=== PATIENT | male | born 1955 | race Caucasian/White ===

== ENCOUNTER 2017-11-28 13:20 | Observation (INO) ==
--- NOTE | 2017-11-28 13:28 | Emergency Department Note ---
Disposition Clinical Impression: Acute renal insufficiency Abdominal pain Qualifiers: Abdominal location: generalized Qualified Code(s): R10.84 - Generalized abdominal pain Disposition: Home, Self-Care Condition: Fair Referrals: Lesly Ying CNP [Primary Care Provider] - Forms: ED Satisfaction Letter, Work/School Release Time of Disposition: 15:47 (Dr Villarreal) Abdominal Pain HPI - General Chief Complaint: ED Abdominal Pain Stated Complaint: Abdominal pain, nausea, vomiting Time Seen by Provider: 11/28/17 13:27 Source: patient Mode of arrival: ambulatory Limitations: no limitations Nursing Notes Reviewed: Yes Vital Signs Reviewed: Yes - History of Present Illness Pt Subjective Complaint: abdominal pain Onset (ago): day(s) (3) Consistency: intermittent, Worsening Location: periumbilical, epigastric Pain Severity: moderate Pain Scale: 9 Radiation: none Migration to: no migration Improves with: nothing Worsens with: eating, movement, other (palpation) Context: other (Acute onset abdominal pain with early satiety. The patient noted cramping around the periumbilical and epigastric area. He does have a palpable bulge on the anterior abdomen. The patient denies any fever, chills, chest pain, shortness of breath, or any changes in his bladder habits. He does state one bowel movement in the last 3 days.) Treatments prior to arrival: none - Related Data Home Medications Medication Instructions Recorded Confirmed Lovastatin 40 mg PO DAILY 11/18/15 11/28/17 Metoprolol [Lopressor] 50 mg PO DAILY 11/18/15 11/28/17 Lisinopril-HCTZ 20-12.5 [Prinzide 1 each PO DAILY 11/07/17 11/28/17 20-12.5] Oxycodone HCl/Acetaminophen 1 each PO TID 11/28/17 11/28/17 [Percocet 7.5-325 mg Tablet] Allergies Allergy/AdvReac Type Severity Reaction Status Date / Time acetaminophen [From Vicodin] Allergy Itching Verified 11/28/17 13:21 hydrocodone [From Vicodin] Allergy Itching Verified 11/28/17 13:21 All systems ED: reviewed and negative except as stated. Review of Systems: As Per HPI Abdominal Pain PMH - Past Medical History Medical history: Reports: arthritis, asthma, COPD, GI bleed, hyperlipidemia, hypertension, migraine, other Male Surgical History: Reports: other Psychiatric history: Reports: no psych history - Social History Smoking status: Current every day smoker Alcohol use: Reports: none Drug use: Reports: none Physical Exam - General Limitations: no limitations General appearance: alert, in no apparent distress - Head Head exam: atraumatic, normocephalic, normal inspection - Eye Eye exam: Present: normal appearance, PERRL, EOMI - ENT ENT exam: normal exam, normal oropharynx, mucous membranes moist - Neck Neck exam: Present: normal inspection - Chest Chest inspection: Present: normal inspection, symmetric chest wall rise - Respiratory Respiratory exam: Present: normal lung sounds bilaterally - Cardiovascular Cardiovascular exam: Present: regular rate, normal rhythm, normal heart sounds - Abdominal Exam Abdominal exam: Present: soft, tenderness, normal bowel sounds, hernia (Ventral hernia between the epigastrium and umbilical area.). Absent: distention, guarding, rebound, rigidity, Vazquez's sign, tenderness at McBurney's Point Abdominal tenderness: Present: mild - Extremities Exam Extremities exam: Present: normal inspection, full ROM. Absent: tenderness, pedal edema - Back Exam Back exam: Present: normal inspection, full ROM. Absent: tenderness - Neurological Exam Neurological exam: Present: alert, oriented X3, CN II-XII intact, normal gait - Psychiatric Psychiatric exam: Present: normal affect, normal mood - Skin Skin exam: Present: warm, dry, intact, normal color Course Vital Signs Temperature 97.1 F L 11/28/17 13:23 Pulse Rate 88 11/28/17 13:23 Respiratory Rate 20 11/28/17 13:23 Blood Pressure 150/92 11/28/17 13:23 O2 Sat by Pulse Oximetry 94 11/28/17 13:23 Temperature 97.1 F L 11/28/17 13:23 Pulse Rate 80 11/28/17 15:29 Respiratory Rate 18 11/28/17 15:29 Blood Pressure 142/78 11/28/17 15:29 O2 Sat by Pulse Oximetry 95 11/28/17 15:29 Oxygen Delivery Oxygen Delivery Room Air Abdominal Pain - MDM Narrative Medical decision making narrative: Patient discomfort improve after Reglan treatment. He will be admitted secondary to dehydration as well as abdominal pain. He does show leukocytosis but no clinical signs for acute abdomen. Discussed case with hospitalist and agree with empiric Zosyn therapy. - Differential Diagnosis Differential Diagnosis: Likely: abdominal pain non-specific, diverticulitis, diverticulosis, gastroenteritis, small bowel obstruction - Medical Records Medical records reviewed: Yes I reviewed the patient's medical records. - Lab Data Lab results reviewed: Yes I reviewed the patient's lab results. Result diagrams: 11/28/17 14:12 11/28/17 14:12 Lab Results 11/28/17 11/28/17 Range/Units 14:12 14:12 WBC 18.9 H (4.3-11.1) K/mcL RBC 4.68 (4.19-5.50) M/mcL Hgb 13.9 (12.9-16.9) g/dL Hct 44.0 (37.5-50.1) % MCV 94.0 (83.0-100.0) fL MCH 29.7 (28.0-33.3) pg MCHC 31.6 (31.6-35.5) g/dL RDW 14.6 H (11.5-14.5) % Plt Count 195 (140-400) K/mcL MPV 12.6 H (9.4-12.4) fL Immature Gran % 0.5 (0-4) % Seg Neutrophils % 77.7 % Lymphocytes % 12.8 % Monocytes % 8.1 % Eosinophils % 0.5 % Basophils % 0.4 % Neutrophils # 14.7 H (1.6-8.9) K/mcL Lymphocytes # 2.4 (0.6-4.6) K/mcL Monocytes # 1.5 H (0.0-1.3) K/mcL Eosinophils # 0.1 (0.0-0.6) K/mcL Basophils # 0.1 (0.0-0.2) K/mcL Sodium 131 L (136-145) mEq/L Potassium 4.5 (3.5-5.1) mEq/L Chloride 100 (98-107) mEq/L Carbon Dioxide 21 L (23-29) mEq/L BUN 49 H (8-23) mg/dL Creatinine 1.56 H (0.70-1.30) mg/dL Est GFR ( Amer) 55 L (> 60) Est GFR (Non-Af Amer) 45 L (> 60) BUN/Creatinine Ratio 31 H (6-26) Glucose 127 H (70-105) mg/dL Calculated Osmolality 287 (280-300) Calcium 9.1 (8.6-10.3) mg/dL Total Bilirubin 0.4 (0.3-1.0) mg/dL Direct Bilirubin 0.1 (0.0-0.2) mg/dL Indirect Bilirubin 0.3 (0.0-1.2) mg/dL AST 9 L (13-39) Units/L ALT 9 (7-52) Units/L Alkaline Phosphatase 139 H (34-104) Units/L Serum Total Protein 7.5 (6.4-8.9) g/dL Albumin 4.2 (3.5-5.7) g/dL Globulin 3.3 (2.4-3.5) g/dL Albumin/Globulin Ratio 1.3 (1.1-2.2) Lipase 7 L (11-82) Units/L - Radiology Data Radiology results reviewed: Yes I reviewed the patient's radiology results. Abdomen/Pelvis CT 11/28/17 15:01 IMPRESSION: 1. No ventral abdominal hernia appreciated. 2. Atherosclerosis and ectasia of the infrarenal abdominal aorta measuring up to 27 mm. 3. Small fat containing left inguinal hernia. 4. No abnormality of the gastrointestinal tract appreciated. D/ / Mayur Macias / Mayur Macias Interpreting Provider: Mayur Macias
[2017-11-28] MEDS ORDERED: Metoclopramide 10 MG/2 ML VIAL IM STA (13:29)
[2017-11-28] MEDS ORDERED: 0.9 % Sodium Chloride 1,000 ML IVC ONE (13:54)
[2017-11-28] MEDS ORDERED: Isovue-370 500 ML INFUS..BTL IV ONE ×2 (13:55→16:15)
[2017-11-28 14:25] LABS: Basophils # 0.1 K/mcL (0.0-0.2); Basophils % 0.4 %; Eosinophils # 0.1 K/mcL (0.0-0.6); Eosinophils % 0.5 %; Hemoglobin 13.9 g/dL (12.9-16.9); Immature Granulocytes % 0.5 % (0-4); Lymphocytes # 2.4 K/mcL (0.6-4.6); Lymphocytes % 12.8 %; Mean Corpuscular HGB Conc 31.6 g/dL (31.6-35.5); Mean Corpuscular Hemoglobin 29.7 pg (28.0-33.3); Mean Platelet Volume 12.6 fL (9.4-12.4); Monocytes # 1.5 K/mcL (0.0-1.3); Monocytes % 8.1 %; Neutrophils # 14.7 K/mcL (1.6-8.9); Platelet Count 195 K/mcL (140-400); Red Blood Count 4.68 M/mcL (4.19-5.50); Red Cell Distribution Width 14.6 % (11.5-14.5); Segmented Neutrophils % 77.7 %
[2017-11-28 14:45] LABS: Albumin 4.2 g/dL (3.5-5.7); Albumin/Globulin Ratio 1.3 (1.1-2.2); Bilirubin,Direct 0.1 mg/dL (0.0-0.2); Bilirubin,Indirect 0.3 mg/dL (0.0-1.2); Bilirubin,Total 0.4 mg/dL (0.3-1.0); Calcium 9.1 mg/dL (8.6-10.3); Globulin 3.3 g/dL (2.4-3.5); Potassium 4.5 mEq/L (3.5-5.1); Total Protein 7.5 g/dL (6.4-8.9)
[2017-11-28] MEDS ORDERED: Piperacillin/Tazobactam 3.375 GM in 0.9 % Sodium Chloride Mini Bag 100 ML IVPB ONE (15:41)
[2017-11-28] MEDS ORDERED: 0.9 % Sodium Chloride 1,000 ML IVC SCH (16:15)
[2017-11-28] MEDS ORDERED: Naloxone 0.4 MG/ML INJ IVP PRN (16:15)
[2017-11-28] MEDS: Nicotine 21 MG PATCH.TD24 TD SCH (17:21)
[2017-11-28] MEDS: *HR* OxyCODONE Oral Soln 5 MG/5 ML UD.LIQ PO PRN (19:44)
[2017-11-28] MEDS: Metoclopramide 10 MG/2 ML VIAL IVP PRN (20:16)
[2017-11-29] MEDS: *HR* OxyCODONE Oral Soln 5 MG/5 ML UD.LIQ PO PRN ×5 (03:06→22:43)
[2017-11-29] MEDS: Metoclopramide 10 MG/2 ML VIAL IVP PRN (04:21)
[2017-11-29 06:33] LABS: Hematocrit 40.2 % (37.5-50.1); Hemoglobin 13.8 g/dL (12.9-16.9); Mean Corpuscular HGB Conc 34.3 g/dL (31.6-35.5); Mean Corpuscular Hemoglobin 29.9 pg (28.0-33.3); Mean Platelet Volume 12.8 fL (9.4-12.4); Platelet Count 178 K/mcL (140-400); Red Blood Count 4.62 M/mcL (4.19-5.50)
[2017-11-29 07:00] LABS: Alanine Aminotransferase 8 Units/L (7-52); Albumin/Globulin Ratio 1.3 (1.1-2.2); Alkaline Phosphatase 122 Units/L (34-104); Aspartate Amino Transferase 11 Units/L (13-39); BUN/Creatinine Ratio 37 (6-26); Bilirubin,Total 0.3 mg/dL (0.3-1.0); Blood Urea Nitrogen 45 mg/dL (8-23); Calcium 9.1 mg/dL (8.6-10.3); Carbon Dioxide 20 mEq/L (23-29); Chloride 102 mEq/L (98-107); Globulin 3.1 g/dL (2.4-3.5); Glucose 171 mg/dL (70-105); Osmolality,Calculated 292 (280-300); Potassium 4.1 mEq/L (3.5-5.1); Sodium 133 mEq/L (136-145); Total Protein 7.1 g/dL (6.4-8.9); eGFR For African Americans > 60 (> 60); eGFR For Non-African Americans > 60 (> 60)
[2017-11-29] MEDS: Nicotine 21 MG PATCH.TD24 TD SCH (08:04)
[2017-11-29] MEDS: Ondansetron ODT 4 MG TAB.RAPDIS SL PRN ×2 (08:37→21:53)
[2017-11-29] MEDS ORDERED: Lisinopril 20 MG TABLET PO SCH (09:00)
[2017-11-29] MEDS ORDERED: Metoclopramide 10 MG/2 ML VIAL IVP SCH (09:00)
[2017-11-29] MEDS ORDERED: hydroCHLOROthiazide 25 MG TABLET PO SCH (09:00)
[2017-11-29] MEDS: *HR* Promethazine 25 MG/ML VIAL IVP PRN ×4 (10:45→22:43)
--- NOTE | 2017-11-29 11:47 | Internal Med History&Physical ---
Date of Encounter: 11/29/17 Time of Encounter: 11:15 Assessment and Plan (1) Abdominal pain Current visit: Yes Status: Acute Suspect acute gastroenteritis. Will continue supportive care and reassess in a.m. Qualifiers: Abdominal location: generalized Qualified Code(s): R10.84 - Generalized abdominal pain (2) Acute renal insufficiency Current visit: Yes Status: Acute Suspect secondary to vomiting with dehydration and use of Prinzide. We will discontinue lisinopril/HCTZ and continue IV fluids. (3) COPD (chronic obstructive pulmonary disease) Current visit: No Status: Chronic Continue NicoDerm patch. Qualifiers: COPD type: unspecified COPD Qualified Code(s): J44.9 - Chronic obstructive pulmonary disease, unspecified Internal Medicine - H&P: HPI Chief complaint: Vomiting and abdominal discomfort Admitted From: Emergency Dept Plans for Post Hospital Care: Home History of present illness: Mr. Chau is a 62 year old male who came to emergency room stating he had onset of abdominal discomfort the morning of November 25 upon awakening. The pain persisted unchanged over the next 3 days. He developed vomiting the morning of November 28 and reports approximately 12 episodes of vomiting without visible blood. He denies diarrhea but has had chills. The abdominal pain has remained unchanged. He denies previous similar pains. He was evaluated in emergency room and admitted to [facility] floor for ongoing care needs. He reports some acquaintances have similar symptoms. His GI history is negative for known disorders of liver gallbladder or exocrine pancreas. Past Med Surg Social Fam HX - Past Medical History Medical history: arthritis, asthma, COPD, GI bleed, hyperlipidemia, hypertension , migraine, other Psychiatric history: no psych history - Past Surgical History Surgical History: other - Social History Smoking Status: Current every day smoker Smokeless Tobacco Status: No Alcohol use: none Drug use: none Internal Medicine - H&P: Meds Lovastatin 40 mg PO DAILY 11/18/15 [History] Metoprolol [Lopressor] 50 mg PO DAILY 11/18/15 [History] Lisinopril-HCTZ 20-12.5 [Prinzide 20-12.5] 1 each PO DAILY 11/07/17 [History] Oxycodone HCl/Acetaminophen [Percocet 7.5-325 mg Tablet] 1 each PO TID 11/28/17 [History] 3 Allergy/AdvReac Type Severity Reaction Status Date / Time acetaminophen [From Vicodin] Allergy Itching Verified 11/28/17 13:21 hydrocodone [From Vicodin] Allergy Itching Verified 11/28/17 13:21 All Systems PM: A 10-system review of systems was performed and is negative for pertinent findings except as documented above in the HPI. Review of systems: Review of systems from his May [facility] hospitalization were reviewed and revised as below. Gen.: His weight has increased from 77.111 kg on 05/16/2016 to 83.915 kg on admission now Cardiovascular: He has history of hypertension but no known [place] heart failure angina DVT or pulmonary embolus. He has known ASHD with stents placed 2009. He has not had further heart cath since then. He has known ASPVD with right leg stent placed approximately 2012. Respiratory: He has smoked since age 15 up to 1-1/2 packs per day. He does not use home oxygen. He had PFTs at [facility] approximately 2010 which showed COPD/ emphysema. He has not been tested for sleep apnea. GI: As per history of present illness : He has had remote kidney stones. He denies other kidney or bladder disorders except for acute kidney injury that resolved at the February 2015 hospitalization. Neurologic: He denies large distribution strokes or seizures Endocrine: He has hyperlipidemia but no known diabetes or thyroid disease Hematology/oncology: Denies blood disorders cancers or anemia Psychiatric: He has anxiety but no significant depression or other mental health issues [place] skeletal: He has DJD but no known gout or osteoporosis - Constitutional Vitals: Temp Pulse Resp BP Pulse Ox 98.2 F 73 18 142/72 97 11/29/17 10:07 11/29/17 10:07 11/29/17 10:07 11/29/17 10:07 11/29/17 10:07 Exam: Gen.: He is a well-developed well-nourished male sitting on the side of bed who appears in mild discomfort HEENT: Head is atraumatic and normocephalic. Eyes: EOMI. There is no scleral icterus. Mouth: He is edentulous. Mucosa is moist. Neck: Supple and nontender. There is no thyromegaly or adenopathy noted. Heart: Regular without murmurs gallops or ectopics Lungs: No wheezes or crackles are heard. Abdomen: Abdomen appears minimally distended. It is slightly tympanic to percussion. Bowel sounds are diminished. There is mild diffuse tenderness without guarding on palpation. Extremities: There is no cyanosis edema or clubbing noted. Dorsalis pedis and posttibial pulses are trace palpable bilaterally. His feet are warm to touch. He has DJD changes of his hands. Neurologic: Mental status: He is talkative and a good historian. Cranial nerves : Smile is symmetric. Forehead wrinkles bilaterally. Tongue protrudes midline. EOMI. Motor: There is no pronator drift. Cerebellar: Finger to nose is intact bilaterally. Skin: Warm and dry Internal Med - H&P Results - Labs CBC & Chem 7: 11/29/17 05:50 11/29/17 05:50 Labs: Short CBC 11/29/17 Range/Units 05:50 WBC 24.1 H (4.3-11.1) K/mcL Hgb 13.8 (12.9-16.9) g/dL Hct 40.2 (37.5-50.1) % Plt Count 178 (140-400) K/mcL BMP 11/29/17 05:50 Sodium 133 L Potassium 4.1 Chloride 102 Carbon Dioxide 20 L BUN 45 H Creatinine 1.22 Glucose 171 H Calcium 9.1 Liver Function 11/29/17 Range/Units 05:50 Total Bilirubin 0.3 (0.3-1.0) mg/dL AST 11 L (13-39) Units/L ALT 8 (7-52) Units/L Alkaline Phosphatase 122 H (34-104) Units/L Albumin 4.0 (3.5-5.7) g/dL
[2017-11-29] MEDS: ALPRAZolam 0.5 MG TABLET PO PRN ×2 (17:17→22:42)
[2017-11-30] MEDS: *HR* Promethazine 25 MG/ML VIAL IVP PRN ×2 (03:16→20:54)
[2017-11-30] MEDS: *HR* OxyCODONE Oral Soln 5 MG/5 ML UD.LIQ PO PRN ×5 (03:16→20:53)
[2017-11-30] MEDS: Ondansetron ODT 4 MG TAB.RAPDIS SL PRN ×3 (06:10→17:32)
[2017-11-30] MEDS: ALPRAZolam 0.5 MG TABLET PO PRN ×3 (06:10→20:54)
[2017-11-30 06:14] LABS: Basophils # 0.1 K/mcL (0.0-0.2); Basophils % 0.2 %; Hematocrit 38.9 % (37.5-50.1); Hemoglobin 13.2 g/dL (12.9-16.9); Immature Granulocytes % 0.6 % (0-4); Lymphocytes % 7.1 %; Mean Corpuscular HGB Conc 33.9 g/dL (31.6-35.5); Mean Corpuscular Hemoglobin 29.4 pg (28.0-33.3); Mean Corpuscular Volume 86.6 fL (83.0-100.0); Mean Platelet Volume 13.1 fL (9.4-12.4); Monocytes % 8.6 %; Neutrophils # 22.9 K/mcL (1.6-8.9); Platelet Count 170 K/mcL (140-400); Red Blood Count 4.49 M/mcL (4.19-5.50); Red Cell Distribution Width 13.8 % (11.5-14.5); Segmented Neutrophils % 83.5 %
[2017-11-30 06:18] LABS: Monocytes # 2.4 K/mcL (0.0-1.3)
[2017-11-30 06:29] LABS: Alanine Aminotransferase 7 Units/L (7-52); Albumin 3.6 g/dL (3.5-5.7); Albumin/Globulin Ratio 1.1 (1.1-2.2); Alkaline Phosphatase 104 Units/L (34-104); Aspartate Amino Transferase 9 Units/L (13-39); BUN/Creatinine Ratio 35 (6-26); Bilirubin,Total 0.3 mg/dL (0.3-1.0); Blood Urea Nitrogen 45 mg/dL (8-23); Carbon Dioxide 24 mEq/L (23-29); Chloride 99 mEq/L (98-107); Globulin 3.2 g/dL (2.4-3.5); Glucose 159 mg/dL (70-105); Magnesium 2.1 mg/dL (1.6-2.6); Osmolality,Calculated 291 (280-300); Sodium 133 mEq/L (136-145); Total Protein 6.8 g/dL (6.4-8.9); eGFR For African Americans > 60 (> 60); eGFR For Non-African Americans 56 (> 60)
[2017-11-30 06:55] LABS: Platelet Estimate Normal (Normal)
[2017-11-30] MEDS: Nicotine 21 MG PATCH.TD24 TD SCH (08:24)
--- NOTE | 2017-11-30 12:49 | Internal Med Progress Note ---
Date of Encounter: 11/30/17 Time of Encounter: 12:40 - Assessment and plan (1) Abdominal pain Current Visit: Yes Status: Acute Assessment and plan: November 30. Continue supportive care and reassess in a.m. Qualifiers: Abdominal location: generalized Qualified Code(s): R10.84 - Generalized abdominal pain (2) Acute renal insufficiency Current Visit: Yes Status: Acute Assessment and plan: November 30. Remain off lisinopril/HCTZ and monitor renal indices. (3) COPD (chronic obstructive pulmonary disease) Current Visit: No Status: Chronic Assessment and plan: November 30. Continue NicoDerm patch Qualifiers: COPD type: unspecified COPD Qualified Code(s): J44.9 - Chronic obstructive pulmonary disease, unspecified - Subjective Interval history: November 30. He has no new complaints. He reports he has not vomited in over 12 hours. His abdominal pain is not significantly changed. He denies diarrhea. - Constitutional Vitals: Temp Pulse Resp BP Pulse Ox 98.4 F 90 20 122/76 95 11/30/17 10:30 11/30/17 10:30 11/30/17 10:30 11/30/17 10:30 11/30/17 10:30 Exam: He is lying in bed and appears in less pain than yesterday. Abdomen shows very few bowel sounds. The distention appears slightly decreased. He reports tenderness to light palpation. Extremities show no edema. I reviewed his medications. I discussed pertinent lab results with him. Internal Medicine: Result - Labs CBC & Chem 7: 11/30/17 05:40 11/30/17 05:40 Labs: Short CBC 11/30/17 Range/Units 05:40 WBC 27.4 H (4.3-11.1) K/mcL Hgb 13.2 (12.9-16.9) g/dL Hct 38.9 (37.5-50.1) % Plt Count 170 (140-400) K/mcL Neutrophils # 22.9 H (1.6-8.9) K/mcL BMP 11/30/17 05:40 Sodium 133 L Potassium 4.0 Chloride 99 Carbon Dioxide 24 BUN 45 H Creatinine 1.29 Glucose 159 H Calcium 9.0 Liver Function 11/30/17 Range/Units 05:40 Total Bilirubin 0.3 (0.3-1.0) mg/dL AST 9 L (13-39) Units/L ALT 7 (7-52) Units/L Alkaline Phosphatase 104 (34-104) Units/L Albumin 3.6 (3.5-5.7) g/dL Consult Discharge Plan - Plan Referrals: Lesly Ying, ROBERTA [Primary Care Provider] - 1 week
[2017-12-01] MEDS: *HR* Promethazine 25 MG/ML VIAL IVP PRN ×2 (06:37→13:09)
[2017-12-01] MEDS: ALPRAZolam 0.5 MG TABLET PO PRN ×3 (06:37→21:46)
[2017-12-01] MEDS: *HR* OxyCODONE Oral Soln 5 MG/5 ML UD.LIQ PO PRN ×3 (06:37→21:47)
[2017-12-01 06:52] LABS: Basophils % 0.2 %; Eosinophils % 0.1 %; Hematocrit 35.7 % (37.5-50.1); Immature Granulocytes % 0.7 % (0-4); Lymphocytes % 8.8 %; Mean Corpuscular HGB Conc 33.6 g/dL (31.6-35.5); Mean Corpuscular Hemoglobin 29.4 pg (28.0-33.3); Mean Corpuscular Volume 87.5 fL (83.0-100.0); Mean Platelet Volume 13.5 fL (9.4-12.4); Monocytes % 8.8 %; Platelet Count 154 K/mcL (140-400); Red Blood Count 4.08 M/mcL (4.19-5.50); Red Cell Distribution Width 13.7 % (11.5-14.5); Segmented Neutrophils % 81.4 %
[2017-12-01 07:01] LABS: Neutrophils # 18.2 K/mcL (1.6-8.9)
[2017-12-01 07:09] LABS: BUN/Creatinine Ratio 32 (6-26); Blood Urea Nitrogen 38 mg/dL (8-23); Calcium 8.6 mg/dL (8.6-10.3); Carbon Dioxide 22 mEq/L (23-29); Chloride 100 mEq/L (98-107); Glucose 104 mg/dL (70-105); Osmolality,Calculated 277 (280-300); Potassium 4.2 mEq/L (3.5-5.1); Sodium 129 mEq/L (136-145); eGFR For African Americans > 60 (> 60); eGFR For Non-African Americans > 60 (> 60)
[2017-12-01] MEDS: Nicotine 21 MG PATCH.TD24 TD SCH (09:27)
--- NOTE | 2017-12-01 09:56 | Internal Med Progress Note ---
Date of Encounter: 12/01/17 Time of Encounter: 09:49 - Assessment and plan (1) Abdominal pain Current Visit: Yes Status: Acute Assessment and plan: November 30. Continue supportive care and reassess in a.m. December 01. Improved. Continue present treatment. Anticipate discharge home in 1-2 days Qualifiers: Abdominal location: generalized Qualified Code(s): R10.84 - Generalized abdominal pain (2) Acute renal insufficiency Current Visit: Yes Status: Acute Assessment and plan: November 30. Remain off lisinopril/HCTZ and monitor renal indices. (3) COPD (chronic obstructive pulmonary disease) Current Visit: No Status: Chronic Assessment and plan: November 30. Continue NicoDerm patch Qualifiers: COPD type: unspecified COPD Qualified Code(s): J44.9 - Chronic obstructive pulmonary disease, unspecified - Subjective Interval history: November 30. He has no new complaints. He reports he has not vomited in over 12 hours. His abdominal pain is not significantly changed. He denies diarrhea. December 01. He has no new complaints and states he feels better. He tolerated pancakes for breakfast and has no nausea. He still has some abdominal pain. - Constitutional Vitals: Temp Pulse Resp BP Pulse Ox 98.0 F 97 16 135/88 94 12/01/17 06:27 12/01/17 06:27 12/01/17 06:27 12/01/17 06:27 12/01/17 06:27 Exam: He is sitting on the side of bed and appears more comfortable today. His affect is cheerful. I reviewed his medications. I discussed pertinent lab results with him. Internal Medicine: Result - Labs CBC & Chem 7: 12/01/17 05:34 12/01/17 05:34 Labs: Short CBC 12/01/17 Range/Units 05:34 WBC 22.3 H (4.3-11.1) K/mcL Hgb 12.0 L (12.9-16.9) g/dL Hct 35.7 L (37.5-50.1) % Plt Count 154 (140-400) K/mcL Neutrophils # 18.2 H (1.6-8.9) K/mcL BMP 12/01/17 05:34 Sodium 129 L Potassium 4.2 Chloride 100 Carbon Dioxide 22 L BUN 38 H Creatinine 1.20 Glucose 104 Calcium 8.6 Consult Discharge Plan - Plan Referrals: Lesly Ying CNP [Primary Care Provider] - 1 week
[2017-12-01] MEDS ORDERED: *HR* Promethazine 25 MG/ML VIAL IVP PRN (14:38)
[2017-12-01] MEDS: Ondansetron ODT 4 MG TAB.RAPDIS SL PRN (14:46)
[2017-12-02] MEDS ORDERED: GI Cocktail 40 ML EACH PO ONE (02:15)
[2017-12-02] MEDS: Ondansetron ODT 4 MG TAB.RAPDIS SL PRN ×3 (04:40→17:08)
[2017-12-02] MEDS: *HR* OxyCODONE Oral Soln 5 MG/5 ML UD.LIQ PO PRN ×2 (04:45→20:46)
[2017-12-02 06:35] LABS: Basophils % 0.2 %; Eosinophils % 0.1 %; Hematocrit 37.6 % (37.5-50.1); Hemoglobin 12.7 g/dL (12.9-16.9); Immature Granulocytes % 0.5 % (0-4); Lymphocytes # 1.6 K/mcL (0.6-4.6); Lymphocytes % 9.5 %; Mean Corpuscular HGB Conc 33.8 g/dL (31.6-35.5); Mean Corpuscular Hemoglobin 29.5 pg (28.0-33.3); Mean Corpuscular Volume 87.2 fL (83.0-100.0); Mean Platelet Volume 13.1 fL (9.4-12.4); Monocytes # 1.4 K/mcL (0.0-1.3); Monocytes % 8.3 %; Neutrophils # 13.7 K/mcL (1.6-8.9); Platelet Count 174 K/mcL (140-400); Red Blood Count 4.31 M/mcL (4.19-5.50); Red Cell Distribution Width 13.6 % (11.5-14.5); Segmented Neutrophils % 81.4 %
[2017-12-02 07:11] LABS: BUN/Creatinine Ratio 31 (6-26); Blood Urea Nitrogen 35 mg/dL (8-23); Calcium 9.1 mg/dL (8.6-10.3); Carbon Dioxide 29 mEq/L (23-29); Chloride 93 mEq/L (98-107); Glucose 136 mg/dL (70-105); Osmolality,Calculated 282 (280-300); Phosphorous 3.8 mg/dL (2.7-4.5); Potassium 4.2 mEq/L (3.5-5.1); Sodium 131 mEq/L (136-145); eGFR For African Americans > 60 (> 60); eGFR For Non-African Americans > 60 (> 60)
[2017-12-02 09:05] LABS: % Iron Saturation 9 % (20-55); Ferritin 635 ng/ml (20-250); Iron 25 mcg/dL (65-175); Transferrin 189 mg/dL (203-362)
[2017-12-02 09:10] LABS: Folate 14.4 ng/mL (3.0-16.0)
--- NOTE | 2017-12-02 10:06 | Internal Med Progress Note ---
Date of Encounter: 12/02/17 Time of Encounter: 09:55 - Assessment and plan (1) Abdominal pain Current Visit: Yes Status: Acute Assessment and plan: November 30. Continue supportive care and reassess in a.m. December 01. Improved. Continue present treatment. Anticipate discharge home in 1-2 days December 02. Clinically improving with decreased WBC. Will order ice chips until improvement in abdominal distention and vomiting Qualifiers: Abdominal location: generalized Qualified Code(s): R10.84 - Generalized abdominal pain (2) Acute renal insufficiency Current Visit: Yes Status: Acute Assessment and plan: November 30. Remain off lisinopril/HCTZ and monitor renal indices. December 02. Continues to improve. We will monitor labs. (3) COPD (chronic obstructive pulmonary disease) Current Visit: No Status: Chronic Assessment and plan: November 30. Continue NicoDerm patch Qualifiers: COPD type: unspecified COPD Qualified Code(s): J44.9 - Chronic obstructive pulmonary disease, unspecified (4) Urinary retention Current Visit: Yes Status: Acute Assessment and plan: December 02. Continue Suarez catheter for now. - Subjective Interval history: November 30. He has no new complaints. He reports he has not vomited in over 12 hours. His abdominal pain is not significantly changed. He denies diarrhea. December 01. He has no new complaints and states he feels better. He tolerated pancakes for breakfast and has no nausea. He still has some abdominal pain. December 02. He has no new complaints. He had 1-2 episodes of vomiting since yesterday. Repeat abdominal CT was done yesterday afternoon. Suarez catheter was inserted with 400 mL urine output. - Constitutional Vitals: Temp Pulse Resp BP Pulse Ox 98.7 F 93 20 120/78 90 12/02/17 09:59 12/02/17 09:59 12/02/17 09:59 12/02/17 09:59 12/02/17 09:59 Exam: He is resting in bed and appears in minimal distress. His abdomen is tympanic to percussion. Bowel sounds are present and slightly high-pitched. There is mild tenderness to palpation diffusely. I reviewed his medications. I reviewed his abdominal CT report. I reviewed pertinent labs with him including improved azotemia and WBC. Internal Medicine: Result - Labs CBC & Chem 7: 12/02/17 06:07 12/02/17 06:07 Labs: Short CBC 12/02/17 Range/Units 06:07 WBC 16.8 H (4.3-11.1) K/mcL Hgb 12.7 L (12.9-16.9) g/dL Hct 37.6 (37.5-50.1) % Plt Count 174 (140-400) K/mcL Neutrophils # 13.7 H (1.6-8.9) K/mcL BMP 12/02/17 06:07 Sodium 131 L Potassium 4.2 Chloride 93 L Carbon Dioxide 29 BUN 35 H Creatinine 1.12 Glucose 136 H Calcium 9.1 - Impressions Impressions Abdomen/Pelvis CT 12/01/17 17:55 IMPRESSION: 1. New increased wall thickening and inflammatory changes involving the horizontal portion of the duodenum and extending to the proximal jejunum. There are also increased fluid-filled prominent loops of small bowel throughout the abdomen and pelvis. Findings are suspicious for an infectious or inflammatory duodenitis/enteritis. 2. 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 3. Minimal inflammatory changes surrounding the pancreatic uncinate process is probably reactive to adjacent duodenitis. 4. No evidence of appendicitis. 5. Stable ectasia of the abdominal aorta at 2.8 cm. RECOMMENDATIONS: Managing Abdominal Aortic Aneurysms 2.6-2.9 cm: Every 5 years* 3.0-3.4 cm: Every 3 years. 3.5-3.9 cm: Every 1 year. 4.0-4.4 cm: Every 1 year. Recommend vascular consultation. 4.5-5.4 cm: Every 6 months. Recommend vascular consultation. Greater than or equal to 5.5 cm: Referral to vascular surgeon. *For abdominal aortas with maximum diameter of 2.6-2.9 cm meeting criteria for AAA (>50% of proximal normal segment). Reference: J Vasc Surg. 2009 May;50(4 Suppl):S2-49 D/ / 12/01/2017 18:33:25 Dinh Samaniego MD / [place] Interpreting Provider: Dinh Samaniego MD Consult Discharge Plan - Plan Referrals: Lesly Ying CNP [Primary Care Provider] - 1 week
[2017-12-02] MEDS: Nicotine 21 MG PATCH.TD24 TD SCH (11:26)
[2017-12-02] MEDS: ALPRAZolam 0.5 MG TABLET PO PRN (22:44)
[2017-12-03 04:50] LABS: Basophils % 0.2 %; Eosinophils # 0.1 K/mcL (0.0-0.6); Eosinophils % 0.5 %; Hematocrit 32.2 % (37.5-50.1); Immature Granulocytes % 0.5 % (0-4); Lymphocytes # 2.3 K/mcL (0.6-4.6); Lymphocytes % 13.8 %; Mean Corpuscular HGB Conc 34.2 g/dL (31.6-35.5); Mean Corpuscular Hemoglobin 29.6 pg (28.0-33.3); Mean Corpuscular Volume 86.6 fL (83.0-100.0); Mean Platelet Volume 12.7 fL (9.4-12.4); Monocytes # 1.4 K/mcL (0.0-1.3); Monocytes % 8.6 %; Neutrophils # 12.8 K/mcL (1.6-8.9); Platelet Count 164 K/mcL (140-400); Red Blood Count 3.72 M/mcL (4.19-5.50); Red Cell Distribution Width 13.3 % (11.5-14.5); Segmented Neutrophils % 76.4 %
[2017-12-03 05:08] LABS: BUN/Creatinine Ratio 30 (6-26); Blood Urea Nitrogen 27 mg/dL (8-23); Calcium 8.3 mg/dL (8.6-10.3); Carbon Dioxide 23 mEq/L (23-29); Chloride 99 mEq/L (98-107); Glucose 107 mg/dL (70-105); Osmolality,Calculated 278 (280-300); Sodium 131 mEq/L (136-145); eGFR For African Americans > 60 (> 60); eGFR For Non-African Americans > 60 (> 60)
[2017-12-03] MEDS: Nicotine 21 MG PATCH.TD24 TD SCH (08:31)
--- NOTE | 2017-12-03 09:06 | Internal Med Progress Note ---
Date of Encounter: 12/03/17 Time of Encounter: 08:55 - Assessment and plan (1) Abdominal pain Current Visit: Yes Status: Acute Assessment and plan: November 30. Continue supportive care and reassess in a.m. December 01. Improved. Continue present treatment. Anticipate discharge home in 1-2 days December 02. Clinically improving with decreased WBC. Will order ice chips until improvement in abdominal distention and vomiting December 03. Will give milk of magnesia and Dulcolax suppository. Qualifiers: Abdominal location: generalized Qualified Code(s): R10.84 - Generalized abdominal pain (2) Acute renal insufficiency Current Visit: Yes Status: Acute Assessment and plan: November 30. Remain off lisinopril/HCTZ and monitor renal indices. December 02. Continues to improve. We will monitor labs. December 03. Creatinine decreased to 0.90 with estimated GFR greater than 60. Continue IV fluids and remain off lisinopril and HCTZ. (3) COPD (chronic obstructive pulmonary disease) Current Visit: No Status: Chronic Assessment and plan: November 30. Continue NicoDerm patch Qualifiers: COPD type: unspecified COPD Qualified Code(s): J44.9 - Chronic obstructive pulmonary disease, unspecified (4) Urinary retention Current Visit: Yes Status: Acute Assessment and plan: December 02. Continue Suarez catheter for now. - Subjective Interval history: November 30. He has no new complaints. He reports he has not vomited in over 12 hours. His abdominal pain is not significantly changed. He denies diarrhea. December 01. He has no new complaints and states he feels better. He tolerated pancakes for breakfast and has no nausea. He still has some abdominal pain. December 02. He has no new complaints. He had 1-2 episodes of vomiting since yesterday. Repeat abdominal CT was done yesterday afternoon. Suarez catheter was inserted with 400 mL urine output. December 03. He has no new complaints. He states he has not vomited the past 24 hours. He is still having some abdominal discomfort. He denies having a BM since November 27. - Constitutional Vitals: Temp Pulse Resp BP Pulse Ox 98.1 F 101 20 118/69 97 12/03/17 06:50 12/03/17 06:50 12/03/17 06:50 12/03/17 06:50 12/03/17 06:50 Exam: He is resting comfortably in bed and appears in no acute distress. His heart is regular without murmurs gallops or ectopics. Lungs are clear anteriorly. Abdomen is tympanitic to percussion. Bowel sounds are more active than yesterday and no high-pitched sounds are heard. There is no significant tenderness to light palpation and percussion of the abdomen. I reviewed his medications. I discussed pertinent lab results with him. Internal Medicine: Result - Labs CBC & Chem 7: 12/03/17 04:23 12/03/17 04:23 Labs: Short CBC 12/03/17 Range/Units 04:23 WBC 16.7 H (4.3-11.1) K/mcL Hgb 11.0 L D (12.9-16.9) g/dL Hct 32.2 L (37.5-50.1) % Plt Count 164 (140-400) K/mcL Neutrophils # 12.8 H (1.6-8.9) K/mcL BMP 12/03/17 04:23 Sodium 131 L Potassium 4.0 Chloride 99 Carbon Dioxide 23 BUN 27 H Creatinine 0.90 Glucose 107 H Calcium 8.3 L Consult Discharge Plan - Plan Referrals: Lesly Ying, [employer]IST [Primary Care Provider] - 1 week
[2017-12-03] MEDS ORDERED: MOM Conc 10 ML UD.LIQ PO ONE (09:09)
[2017-12-03] MEDS ORDERED: Bisacodyl 10 MG RECTAL SUPPOSITORY RC ONE (09:15)
[2017-12-03] MEDS: *HR* OxyCODONE Oral Soln 5 MG/5 ML UD.LIQ PO PRN ×2 (15:34→22:17)
[2017-12-03] MEDS: ALPRAZolam 0.5 MG TABLET PO PRN ×2 (15:35→22:17)
[2017-12-04 06:30] VITALS: BP 123/68
[2017-12-04 06:35] LABS: Basophils % 0.2 %; Eosinophils # 0.2 K/mcL (0.0-0.6); Eosinophils % 1.8 %; Hematocrit 31.4 % (37.5-50.1); Hemoglobin 10.5 g/dL (12.9-16.9); Immature Granulocytes % 0.7 % (0-4); Lymphocytes # 2.2 K/mcL (0.6-4.6); Lymphocytes % 17.6 %; Mean Corpuscular HGB Conc 33.4 g/dL (31.6-35.5); Mean Corpuscular Hemoglobin 29.8 pg (28.0-33.3); Mean Corpuscular Volume 89.2 fL (83.0-100.0); Mean Platelet Volume 12.9 fL (9.4-12.4); Monocytes # 1.2 K/mcL (0.0-1.3); Monocytes % 9.7 %; Neutrophils # 8.6 K/mcL (1.6-8.9); Platelet Count 169 K/mcL (140-400); Red Blood Count 3.52 M/mcL (4.19-5.50); Red Cell Distribution Width 13.5 % (11.5-14.5)
[2017-12-04 06:55] LABS: BUN/Creatinine Ratio 26 (6-26); Blood Urea Nitrogen 24 mg/dL (8-23); Calcium 8.1 mg/dL (8.6-10.3); Carbon Dioxide 25 mEq/L (23-29); Chloride 99 mEq/L (98-107); Glucose 104 mg/dL (70-105); Osmolality,Calculated 276 (280-300); Sodium 131 mEq/L (136-145); eGFR For African Americans > 60 (> 60); eGFR For Non-African Americans > 60 (> 60)
[2017-12-04] MEDS: Nicotine 21 MG PATCH.TD24 TD SCH (08:17)
[2017-12-04] MEDS: *HR* OxyCODONE Oral Soln 5 MG/5 ML UD.LIQ PO PRN (08:25)
--- NOTE | 2017-12-04 09:26 | Discharge Summary ---
Date of Encounter: 12/04/17 Time of Encounter: 09:20 - Discharge Diagnosis (1) Acute gastroenteritis Priority: Primary Status: Acute (2) Acute renal insufficiency Priority: Secondary Status: Resolved (3) COPD (chronic obstructive pulmonary disease) Priority: Secondary Status: Chronic Qualifiers: COPD type: unspecified COPD Qualified Code(s): J44.9 - Chronic obstructive pulmonary disease, unspecified (4) Urinary retention Priority: Secondary Status: Acute Hospital course: Mr. Chau is a 62 year old male who came to emergency room stating he had onset of abdominal discomfort the morning of November 25 upon awakening. The pain persisted unchanged over the next 3 days. He developed vomiting the morning of November 28 and reports approximately 12 episodes of vomiting without visible blood. He denies diarrhea but has had chills. The abdominal pain has remained unchanged. He denies previous similar pains. He was evaluated in emergency room and admitted to [facility] floor for ongoing care needs. Initial orders were written by the emergency room physician. I saw him on November 29 and performed the history and physical. He was given IV fluids. Antiemetics were used as needed. He had very gradual improvement. Repeat abdominal CT was done 12/01/2017 and showed no new acute pathology. On December 04 he stated he felt stable for discharge home. Lisinopril/HCTZ was discontinued because of renal insufficiency. IV fluids were given and azotemia resolved with BUN and creatinine decreasing to 24 and 0.91 respectively by day of discharge with estimated GFR greater than 60. He will remain off lisinopril/HCTZ at discharge. His blood pressure remained satisfactory. Anemia testing showed iron 25, transferrin saturation 9%, transferrin 189, ferritin 635, B12 285, and folate 14.4. Hemoglobin was 10.5 on day of discharge. His PCP can monitor the anemia. He had urinary retention with a postvoid residual urine volume greater than 400 mL. Suarez catheter was inserted but will be discontinued at discharge. He was started on Flomax 0.4 mg daily at discharge. His PCP can monitor this. He will follow with his PCP Lesly Thompson CNP within 1 week. - Time Spent with Patient Total time spent providing and/or coordinating discharge services: - Discharge Medications Prescriptions: Tamsulosin [Flomax] 0.4 mg PO DAILY #30 cap.er.24h Home Medications: Lovastatin 40 mg PO DAILY 11/18/15 [History] Metoprolol [Lopressor] 50 mg PO DAILY 11/18/15 [History] Oxycodone HCl/Acetaminophen [Percocet 7.5-325 mg Tablet] 1 each PO TID 11/28/17 [History] Tamsulosin [Flomax] 0.4 mg PO DAILY #30 cap.er.24h 12/04/17 [Rx] Allergies/Adverse Reactions: 3 Allergy/AdvReac Type Severity Reaction Status Date / Time acetaminophen [From Vicodin] Allergy Itching Verified 11/28/17 13:21 hydrocodone [From Vicodin] Allergy Itching Verified 11/28/17 13:21 Date of admission: 11/28/17 15:59 Primary care physician: Lesly Ying - Constitutional Vitals: Temp Pulse Resp BP Pulse Ox 98.5 F 93 18 123/68 96 12/04/17 06:27 12/04/17 06:27 12/04/17 06:27 12/04/17 06:27 12/04/17 06:27 - Patient Status Disposition: Home, Self-Care Condition: Fair Functional capacity at discharge: independent ambulation Overall status at discharge: patient is progressing back to baseline - Discharge Instructions Follow Up With: Lesly Ying, [employer] [Primary Care Provider] - 1 week - Diet and Activity Activity: resume usual activities as tolerated Diet: advance to your usual diet
== END 2017-12-04 10:39 | disposition home or self-care (01) ==
LOC: EMEROOPIK 13:20 → INPPIK 13:20
PROVIDERS: ADMIT Internal Medicine; ATTEND Internal Medicine

== ENCOUNTER 2017-12-13 12:09 | Observation (INO) ==
[2017-12-13] MEDS ORDERED: 0.9 % Sodium Chloride 1,000 ML IVC ONE (12:42)
--- NOTE | 2017-12-13 12:44 | Emergency Department Note ---
Disposition Clinical Impression: GINA (acute kidney injury), Orthostatic hypotension Anemia Qualifiers: Anemia type: unspecified type Qualified Code(s): D64.9 - Anemia, unspecified Disposition: Admitted As Inpatient Condition: Fair Referrals: Lesly Ying CNP [Primary Care Provider] - Forms: ED Satisfaction Letter, Work/School Release Time of Disposition: 14:04 (DR OTTO) Dizziness HPI - General Chief Complaint: ED General Medical Stated Complaint: low blood pressure Time Seen by Provider: 12/13/17 12:13 Source: patient Limitations: no limitations Nursing Notes Reviewed: Yes Vital Signs Reviewed: Yes - History of Present Illness HPI Narrative: 62 male presents to the ED secondary to intermittent dizziness. Dizziness is described as lightheadedness that seems to be apparent with change in position and ambulation. The patient denies any headache, palpitations, shortness of breath, chest pain or any focal neurological deficits. The patient was discharged from the hospital after 4 days of inpatient treatment for her severe colitis. He followed up with his PCP yesterday and had blood work and informed that he might still be dehydrated. Pt Subjective Complaint: dizziness Onset (ago): week(s) (1) Timing: gradual onset, intermittent Description: lightheadedness History of similar episodes: No History of trauma: No Severity: moderate Improves with: rest Worsens with: movement (Relation, change in position from supine to sitting or walking) Associated symptoms: Reports: weakness. Denies: ataxia, chest pain, confusion, diaphoresis, fever, malaise, rash, shortness of breath, syncope, vision changes , nausea, vomiting, palpitations - Related Data Home Medications Medication Instructions Recorded Confirmed Lovastatin 40 mg PO DAILY 11/18/15 12/13/17 Metoprolol [Lopressor] 50 mg PO DAILY 11/18/15 12/13/17 Oxycodone HCl/Acetaminophen 1 each PO TID 11/28/17 12/13/17 [Percocet 7.5-325 mg Tablet] Previous Rx's Medication Instructions Recorded Tamsulosin [Flomax] 0.4 mg PO DAILY #30 cap.er.24h 12/04/17 Allergies Allergy/AdvReac Type Severity Reaction Status Date / Time acetaminophen [From Vicodin] Allergy Itching Verified 12/13/17 12:09 hydrocodone [From Vicodin] Allergy Itching Verified 12/13/17 12:09 All systems ED: reviewed and negative except as stated. Review of Systems: As Per HPI Past Medical History - Past Medical History Medical history: Reports: arthritis, asthma, COPD, GI bleed, hyperlipidemia, hypertension, migraine, other Surgical history: Reports: other Psychiatric history: Reports: no psych history - Social History Smoking Status: Current every day smoker Smokeless Tobacco Status: No Alcohol use: Reports: none Drug use: Reports: none Physical Exam - General Limitations: no limitations General appearance: alert, in no apparent distress - Head Head exam: atraumatic, normocephalic, normal inspection - Eye Eye exam: Present: normal appearance, PERRL, EOMI. Absent: scleral icterus, conjunctival injection, nystagmus - ENT ENT exam: normal oropharynx, mucous membranes dry, normal external ear exam - Neck Neck exam: Present: normal inspection, full ROM, trachea midline. Absent: lymphadenopathy - Chest Chest inspection: Present: normal inspection, symmetric chest wall rise - Respiratory Respiratory exam: Present: normal lung sounds bilaterally - Cardiovascular Cardiovascular exam: Present: regular rate, normal rhythm, normal heart sounds - Abdominal Exam Abdominal exam: Present: soft, Non-Tender. Absent: tenderness, distention, guarding, rebound, rigidity - Extremities Exam Extremities exam: Present: normal inspection, full ROM, normal capillary refill. Absent: tenderness, pedal edema - Back Exam Back exam: Present: normal inspection, full ROM. Absent: tenderness - Neurological Exam Neurological exam: Present: alert, oriented X3, CN II-XII intact, normal gait - Psychiatric Psychiatric exam: Present: normal affect, normal mood - Skin Skin exam: Present: warm, dry (Skin tenting), intact, normal color Course Vital Signs Temperature 97.2 F L 12/13/17 12:11 Pulse Rate 101 12/13/17 12:11 Respiratory Rate 16 12/13/17 12:11 Blood Pressure 83/51 12/13/17 12:11 O2 Sat by Pulse Oximetry 98 12/13/17 12:11 Temperature 97.2 F L 12/13/17 12:11 Pulse Rate 72 12/13/17 13:18 Respiratory Rate 16 12/13/17 12:11 Blood Pressure 77/49 12/13/17 13:18 O2 Sat by Pulse Oximetry 98 12/13/17 12:11 Oxygen Delivery Oxygen Delivery Room Air Dizziness - MDM Narrative Medical decision making narrative: Stable ED course with no changes in his mental status. He did have intermittent low blood pressure may be secondary to hypovolemia. He also has worsening renal function as well as anemia. The patient will be admitted to the hospital for further treatment and stabilization. - Differential Diagnosis Likely: orthostatic hypotension, other occult medical condition. Unlikely: adverse reaction to drug, vertebral basilar insufficiency, cerebrovascular accident, acute vestibular neuronitis, transient cerebral ischemia, cerebellar infarct, cerebellar tumor - Medical Records Medical records reviewed: Yes I reviewed the patient's medical records. - Lab Data Result diagrams: 12/13/17 13:11 12/13/17 13:11 Lab Results 12/13/17 12/13/17 Range/Units 13:11 13:11 WBC 10.2 (4.3-11.1) K/mcL RBC 3.06 L (4.19-5.50) M/mcL Hgb 8.9 L (12.9-16.9) g/dL Hct 27.5 L (37.5-50.1) % MCV 89.9 (83.0-100.0) fL MCH 29.1 (28.0-33.3) pg MCHC 32.4 (31.6-35.5) g/dL RDW 13.6 (11.5-14.5) % Plt Count 277 (140-400) K/mcL MPV 10.8 (9.4-12.4) fL Immature Gran % 0.6 (0-4) % Seg Neutrophils % 56.4 % Lymphocytes % 32.2 % Monocytes % 7.9 % Eosinophils % 2.3 % Basophils % 0.6 % Neutrophils # 5.8 (1.6-8.9) K/mcL Lymphocytes # 3.3 (0.6-4.6) K/mcL Monocytes # 0.8 (0.0-1.3) K/mcL Eosinophils # 0.2 (0.0-0.6) K/mcL Basophils # 0.1 (0.0-0.2) K/mcL Sodium 133 L (136-145) mEq/L Potassium 3.7 (3.5-5.1) mEq/L Chloride 95 L (98-107) mEq/L Carbon Dioxide 26 (23-29) mEq/L BUN 37 H (8-23) mg/dL Creatinine 1.89 H (0.70-1.30) mg/dL Est GFR ( Amer) 44 L (> 60) Est GFR (Non-Af Amer) 36 L (> 60) BUN/Creatinine Ratio 20 (6-26) Glucose 87 (70-105) mg/dL Calculated Osmolality 284 (280-300) Calcium 8.2 L (8.6-10.3) mg/dL Total Bilirubin 0.2 L (0.3-1.0) mg/dL AST 10 L (13-39) Units/L ALT 12 (7-52) Units/L Alkaline Phosphatase 89 (34-104) Units/L Serum Total Protein 6.0 L (6.4-8.9) g/dL Albumin 3.0 L (3.5-5.7) g/dL Globulin 3.0 (2.4-3.5) g/dL Albumin/Globulin Ratio 1.0 L (1.1-2.2) - EKG Data EKG attestation: Yes I reviewed and interpreted this EKG. Rate: normal Rhythm: NSR [place]/QRS: normal When compared to previous EKG there are: no significant changes Interpretation: nonspecific ST-T wave changes
[2017-12-13 13:19] LABS: Basophils # 0.1 K/mcL (0.0-0.2); Basophils % 0.6 %; Eosinophils # 0.2 K/mcL (0.0-0.6); Eosinophils % 2.3 %; Hematocrit 27.5 % (37.5-50.1); Hemoglobin 8.9 g/dL (12.9-16.9); Immature Granulocytes % 0.6 % (0-4); Lymphocytes # 3.3 K/mcL (0.6-4.6); Lymphocytes % 32.2 %; Mean Corpuscular HGB Conc 32.4 g/dL (31.6-35.5); Mean Corpuscular Hemoglobin 29.1 pg (28.0-33.3); Mean Corpuscular Volume 89.9 fL (83.0-100.0); Mean Platelet Volume 10.8 fL (9.4-12.4); Monocytes # 0.8 K/mcL (0.0-1.3); Monocytes % 7.9 %; Neutrophils # 5.8 K/mcL (1.6-8.9); Platelet Count 277 K/mcL (140-400); Red Blood Count 3.06 M/mcL (4.19-5.50); Red Cell Distribution Width 13.6 % (11.5-14.5); Segmented Neutrophils % 56.4 %
[2017-12-13 13:37] LABS: Bilirubin,Total 0.2 mg/dL (0.3-1.0); Calcium 8.2 mg/dL (8.6-10.3); Potassium 3.7 mEq/L (3.5-5.1)
[2017-12-13] MEDS ORDERED: Nicotine 21 MG PATCH.TD24 TD STA (13:52)
[2017-12-13] MEDS ORDERED: 0.9 % Sodium Chloride 1,000 ML IVC SCH ×3 (14:00→15:02)
[2017-12-13] MEDS ORDERED: Acetaminophen 325 MG TABLET PO PRN (15:02)
[2017-12-13] MEDS ORDERED: OXYCODONE Oral CONC 10 MG/0.5 ML ORAL.SYG SL PRN (15:02)
[2017-12-13] MEDS ORDERED: Ondansetron 4 MG/2 ML VIAL IVP PRN (15:02)
[2017-12-13] MEDS ORDERED: Naloxone 0.4 MG/ML INJ IVP PRN (15:02)
[2017-12-13] MEDS ORDERED: *HR* OxyCODONE/APAP 7.5/325 TABLET PO SCH (15:02)
[2017-12-13] MEDS ORDERED: *HR* OxyCODONE Immed Rel 5 MG TABLET PO PRN (15:30)
--- NOTE | 2017-12-13 15:52 | Electrocardiograph Report ---
[address] [place] [address] Test Date: 2017-12-13 Pat Name: Jose Luis Chau Department: [id number] Room: [facility] Gender: M Director Of Intelligence: [id number] Requested By: Johnny Crenshaw Order Number: [id number] Reading MD: Dorene Brown Measurements Intervals [place] Rate: 77 P: 66 MN: 175 QRS: 16 QRSD: 96 T: 34 QT: 379 QTc: 411 Interpretive Statements SINUS RHYTHM INFERIOR MYOCARDIAL INFARCTION, PROBABLY OLD WITH POSTERIOR EXTENSION Electronically Signed On 12-13-2017 15:50:20 EDT by Dorene Brown
--- NOTE | 2017-12-13 17:12 | Internal Med History&Physical ---
Date of Encounter: 12/13/17 Time of Encounter: 16:40 Assessment and Plan (1) GINA (acute kidney injury) Current visit: Yes Status: Acute Possibly secondary to dehydration. IV fluids have been ordered. Repeat labs will be done in a.m. (2) Anemia Current visit: Yes Status: Acute Anemia testing results of 12/02/2017 were reviewed. Will recheck labs in a.m. Qualifiers: Anemia type: unspecified type Qualified Code(s): D64.9 - Anemia, unspecified Internal Medicine - H&P: HPI Chief complaint: Lightheaded, acute renal insufficiency Admitted From: Emergency Dept Plans for Post Hospital Care: Home History of present illness: Mr. Chau is a 62 year old male who came to emergency room stating he felt lightheaded over the past 2 days. He was seen by his PCP yesterday. No medication adjustments were made. He does not feel improved this morning so came to emergency room. He was found to have initial blood pressure of 83/51. There was acute renal insufficiency with BUN and creatinine 37 and 1.89 respectively. He was admitted to [facility] floor for ongoing care needs. He states he feels improved at present time. He denies vomiting, diarrhea, or use of NSAIDs since discharge from [facility] 12/04/2017. His BUN and creatinine were 24 and 0.9 respectively on day of discharge. He states he has had no abdominal pain for past 2-3 days. He was hospitalized with acute gastroenteritis approximately to 2 weeks ago. He denies disorders of his liver gallbladder or exocrine pancreas otherwise. Past Med Surg Social Fam HX - Past Medical History Medical history: arthritis, asthma, COPD, GI bleed, hyperlipidemia, hypertension , migraine, other Psychiatric history: no psych history - Past Surgical History Surgical History: other - Social History Smoking Status: Current every day smoker Smokeless Tobacco Status: No Alcohol use: none Drug use: none Internal Medicine - H&P: Meds Lovastatin 40 mg PO DAILY 11/18/15 [History] Metoprolol [Lopressor] 50 mg PO DAILY 11/18/15 [History] Oxycodone HCl/Acetaminophen [Percocet 7.5-325 mg Tablet] 1 each PO TID 11/28/17 [History] Tamsulosin [Flomax] 0.4 mg PO DAILY #30 cap.er.24h 12/04/17 [Rx] 3 Allergy/AdvReac Type Severity Reaction Status Date / Time hydrocodone [From Vicodin] Allergy Itching Verified 12/13/17 14:12 All Systems PM: A 10-system review of systems was performed and is negative for pertinent findings except as documented above in the HPI. Review of systems: Review of systems from his November 2017 [facility] hospitalization were reviewed and revised as below. Gen.: His weight has increased from 77.111 kg on 05/16/2016 to 80.286 kg on admission now Cardiovascular: He has history of hypertension but no known NC heart failure angina DVT or pulmonary embolus. He has known ASHD with stents placed 2009. He has not had further heart cath since then. He has known ASPVD with right leg stent placed approximately 2012. Respiratory: He has smoked since age 15 up to 1-1/2 packs per day. He does not use home oxygen. He had PFTs at [facility] approximately 2010 which showed COPD/ emphysema. He has not been tested for sleep apnea. GI: As per history of present illness : He has had remote kidney stones. He denies other kidney or bladder disorders except for acute kidney injury that resolved at the February 2015 hospitalization. Neurologic: He denies large distribution strokes or seizures Endocrine: He has hyperlipidemia but no known diabetes or thyroid disease Hematology/oncology: Denies blood disorders cancers or anemia Psychiatric: He has anxiety but no significant depression or other mental health issues [place] skeletal: He has DJD but no known gout or osteoporosis - Constitutional Vitals: Temp Pulse Resp BP Pulse Ox 99.1 F 90 18 109/65 99 12/13/17 14:00 12/13/17 16:49 12/13/17 14:24 12/13/17 16:49 12/13/17 16:49 Exam: Gen.: He is a well-developed well-nourished male resting comfortably on the side of bed who appears in no acute distress. HEENT: Head is atraumatic and normocephalic. Eyes: EOMI. There is no scleral icterus. Mouth: Mucosa is moist. Neck: Supple and nontender. There is no thyromegaly or adenopathy noted. Heart: Regular without murmurs gallops or ectopics Lungs: No wheezes or crackles are heard. Abdomen: Soft and nontender. No masses or guarding are noted. Exam is limited because he is in the seated position. Extremities: There is no cyanosis edema or clubbing noted. Dorsalis pedis and posterior tibial pulses are trace palpable bilaterally. His feet are warm to touch. Neurologic: Mental status: He is talkative and a good historian. Cranial nerves : Smile is symmetric. Forehead wrinkles bilaterally. Tongue protrudes midline. EOMI. Motor: There is no pronator drift. Cerebellar: Finger to nose is intact bilaterally. Skin: Warm and dry Internal Med - H&P Results - Labs CBC & Chem 7: 12/13/17 13:11 12/13/17 13:11
[2017-12-13] MEDS: 0.45 % Sodium Chloride w/KCl 20 MEQ/1,000 ML MLS IVC SCH (17:50)
[2017-12-13] MEDS ORDERED: MOM Conc 10 ML UD.LIQ PO PRN (18:01)
[2017-12-13] MEDS: *HR* OxyCODONE/APAP 7.5/325 TABLET PO PRN (21:32)
[2017-12-14] MEDS ORDERED: traZODone 50 MG TABLET PO SCH (01:00)
[2017-12-14] MEDS ORDERED: traZODone 50 MG TABLET PO PRN (01:01)
[2017-12-14] MEDS: 0.45 % Sodium Chloride w/KCl 20 MEQ/1,000 ML MLS IVC SCH (04:19)
[2017-12-14 04:24] LABS: Bilirubin,Urine Negative (Negative); Blood,Urine Negative (Negative); Clarity,Urine Clear (Clear); Color,Urine Yellow (Yellow); Glucose,Urine (UA) Normal (Normal); Ketones,Urine Negative (Negative); Leukocyte Esterase,Urine Negative (Negative); Nitrite,Urine Negative (Negative); PH,Urine 5.5 pH Units (5.0-8.0); Protein,Urine Negative (Neg-Trace); Specific Gravity,Urine 1.015 (1.010-1.025); Urobilinogen,Urine Normal (Normal)
[2017-12-14 06:32] LABS: Basophils # 0.1 K/mcL (0.0-0.2); Basophils % 0.9 %; Eosinophils # 0.3 K/mcL (0.0-0.6); Eosinophils % 3.1 %; Hematocrit 30.8 % (37.5-50.1); Hemoglobin 10.1 g/dL (12.9-16.9); Immature Granulocytes % 0.8 % (0-4); Lymphocytes # 3.7 K/mcL (0.6-4.6); Lymphocytes % 42.5 %; Mean Corpuscular HGB Conc 32.8 g/dL (31.6-35.5); Mean Corpuscular Hemoglobin 29.3 pg (28.0-33.3); Mean Corpuscular Volume 89.3 fL (83.0-100.0); Mean Platelet Volume 11.7 fL (9.4-12.4); Monocytes # 0.7 K/mcL (0.0-1.3); Monocytes % 8.4 %; Neutrophils # 3.8 K/mcL (1.6-8.9); Platelet Count 302 K/mcL (140-400); Red Blood Count 3.45 M/mcL (4.19-5.50); Red Cell Distribution Width 13.6 % (11.5-14.5); Segmented Neutrophils % 44.3 %
[2017-12-14 07:37] VITALS: BP 113/68
[2017-12-14 08:14] LABS: BUN/Creatinine Ratio 22 (6-26); Blood Urea Nitrogen 28 mg/dL (8-23); Calcium 8.8 mg/dL (8.6-10.3); Carbon Dioxide 26 mEq/L (23-29); Chloride 101 mEq/L (98-107); Glucose 89 mg/dL (70-105); Magnesium 2.4 mg/dL (1.6-2.6); Osmolality,Calculated 285 (280-300); Potassium 4.7 mEq/L (3.5-5.1); Sodium 135 mEq/L (136-145); eGFR For African Americans > 60 (> 60); eGFR For Non-African Americans 56 (> 60)
[2017-12-14] MEDS: *HR* OxyCODONE/APAP 7.5/325 TABLET PO PRN (09:23)
--- NOTE | 2017-12-14 10:22 | Discharge Summary ---
Date of Encounter: 12/14/17 Time of Encounter: 10:10 - Discharge Diagnosis (1) GINA (acute kidney injury) Priority: Primary Status: Acute (2) Anemia Priority: Secondary Status: Acute Qualifiers: Anemia type: unspecified type Qualified Code(s): D64.9 - Anemia, unspecified Hospital course: Mr. Chau is a 62 year old male who came to emergency room stating he felt lightheaded over the past 2 days. He was seen by his PCP yesterday. No medication adjustments were made. He does not feel improved this morning so came to emergency room. He was found to have initial blood pressure of 83/51. There was acute renal insufficiency with BUN and creatinine 37 and 1.89 respectively. He was admitted to [facility] for ongoing care needs. Initial orders were written by the emergency room physician. I saw him on December 13 and performed the history and physical. He was started on IV fluids. Repeat labs on December 14 showed BUN and creatinine improved to 28 and 1.29 respectively with estimated GFR 56. He had no orthostatic symptoms on ambulation. He felt well when I saw him on December 14 and wished to be discharged home. He will follow with his PCP Lesly Ying CNP within 1 week. - Time Spent with Patient Total time spent providing and/or coordinating discharge services: - Discharge Medications Home Medications: Lovastatin 40 mg PO DAILY 11/18/15 [History] Metoprolol [Lopressor] 50 mg PO DAILY 11/18/15 [History] Oxycodone HCl/Acetaminophen [Percocet 7.5-325 mg Tablet] 1 each PO TID 11/28/17 [History] Tamsulosin [Flomax] 0.4 mg PO DAILY #30 cap.er.24h 12/04/17 [Rx] Allergies/Adverse Reactions: 3 Allergy/AdvReac Type Severity Reaction Status Date / Time hydrocodone [From Vicodin] Allergy Itching Verified 12/13/17 14:12 Date of admission: 12/13/17 14:28 Primary care physician: Lesly Ying - Constitutional Vitals: Temp Pulse Resp BP Pulse Ox 97.5 F L 83 18 113/68 96 12/14/17 03:54 12/14/17 07:32 12/14/17 03:54 12/14/17 07:32 12/14/17 03:54 - Patient Status Disposition: Home, Self-Care Condition: Fair Functional capacity at discharge: independent ambulation Overall status at discharge: patient is progressing back to baseline - Discharge Instructions Follow Up With: Lesly Ying CNP [Primary Care Provider] - 1 week - Diet and Activity Activity: resume usual activities as tolerated Diet: advance to your usual diet
== END 2017-12-14 11:21 | disposition home or self-care (01) ==
LOC: EMEROOPIK 12:09 → INPPIK 12:09
PROVIDERS: ADMIT Internal Medicine; ATTEND Internal Medicine